=== PATIENT | female | born 1965 | race Caucasian/White ===

== ENCOUNTER 2018-08-23 13:41 | Observation (INO) ==
--- NOTE | 2018-08-23 14:13 | Emergency Department Note ---
Disposition Clinical Impression: Pleural effusion, left, Dyspnea on exertion Disposition: Admitted As Inpatient Condition: Undetermined Time of Disposition: 16:41 SOB HPI - General Chief Complaint: ED Chest Pain Stated Complaint: JUANCHO Time Seen by Provider: 08/23/18 13:46 Source: patient, family Mode of arrival: wheelchair Limitations: no limitations Nursing Notes Reviewed: Yes Vital Signs Reviewed: Yes - History of Present Illness 53-year-old female with history of 12 hypertension, CHF, COPD on 2 L nasal cannula Pita the emergency department with complaint of worsening shortness of breath. The patient was recently discharged from [facility] where she was diagnosed with a hemothorax secondary to for fracture ribs on the left. She had a left-sided pleural effusion that upon drainage at [facility] they noted it was a hemothorax. Patient had it drained and continue to [place] or shortness of breath but improved overall to she was brought into the emergency department today by her PCP with concern for worsening shortness of breath. Patient denies any associated chest pain. She denies any associated abdominal pain. The patient has a history of fatty liver and has history of cirrhosis secondary to this. She denies any other complaints at this time including hemoptysis, unilateral leg swelling. She does admit to bilateral lower extremity swelling which she states is not unusual for her. The patient has had no increase in oxygen demand but does state any time she relates more than just a few steps she would have short of breath and is per family weak to the point where she does not feel like she can be cared for at home. Patient denies any other complaints at this time. She is resting comfortably on 2 L nasal cannula at this time and speaking in full sentences at bedside. - Related Data Home Medications Medication Instructions Recorded Confirmed Amlodipine/Atorvastatin 40 mg PO DAILY 08/15/18 08/23/18 [Amlodipine-Atorvast 10-40 mg] Baclofen 20 mg PO TID 08/15/18 08/23/18 Cholecalciferol (D-3) [Vitamin D] 2,000 unit PO DAILY 08/15/18 08/23/18 Dicyclomine Hcl [Bentyl] 20 mg PO BIDWM 08/15/18 08/23/18 Escitalopram [Lexapro] 20 mg PO DAILY 08/15/18 08/23/18 Ferrous Sulfate [Iron] 325 mg PO 08/15/18 Gabapentin [Neurontin] 600 mg PO TID 08/15/18 08/23/18 Lidocaine TOPICAL Soln [Xylocaine] 08/15/18 Lisinopril [Zestril] 10 mg PO DAILY 08/15/18 08/23/18 Montelukast [Singulair] 10 mg PO DAILY 08/15/18 08/23/18 Omeprazole [PriLOSEC] 20 mg PO DAILY 08/15/18 08/23/18 Spironolactone [Aldactone] 25 mg PO DAILY 08/15/18 08/23/18 hydrOXYzine HCl [Hydroxyzine HCl] 25 mg PO 08/15/18 metFORMIN [Glucophage] 1,000 mg PO BIDWM 08/15/18 08/23/18 Allergies Allergy/AdvReac Type Severity Reaction Status Date / Time acetaminophen [From Vicodin] AdvReac Vomiting Verified 08/15/18 10:26 ampicillin AdvReac Rash Verified 08/15/18 10:26 duloxetine [From Cymbalta] AdvReac Swelling Verified 08/15/18 10:26 of the Eye furosemide [From Lasix] AdvReac See Verified 08/15/18 10:26 Comments hydrocodone [From Vicodin] AdvReac Vomiting Verified 08/15/18 10:26 Penicillins [PCN] AdvReac Rash Verified 08/15/18 10:26 pregabalin [From Lyrica] AdvReac See Verified 08/15/18 10:26 Comments All systems ED: reviewed and negative except as stated. Constitutional: Reports: weakness. Denies: fever, chills ENT ED: Denies: dysphagia Cardiovascular: Reports: dyspnea on exertion, orthopnea, edema. Denies: chest pain, syncope Respiratory: Reports: dyspnea. Denies: cough, sputum production Gastrointestinal: Denies: abdominal pain, nausea, vomiting, diarrhea, constipation Genitourinary: Denies: urgency, dysuria Musculoskeletal: Denies: back pain Integumentary: Denies: rash Neurological: Denies: headache, confusion Past Medical History - Past Medical History Attestation: Yes The following information was validated with the patient. Source: patient, old records reviewed Medical history: Reports: asthma, CHF, COPD, diabetes, hyperlipidemia, hypertension, liver disease, other Surgical history: Reports: other Psychiatric history: Reports: anxiety, depression - Social History Smoking Status: Former smoker Smokeless Tobacco Status: No Alcohol use: Reports: none Drug use: Reports: none Physical Exam - General Limitations: no limitations General appearance: alert, in distress (mild) - Head Head exam: atraumatic, normocephalic, normal inspection - Eye Eye exam: Present: normal appearance, PERRL, EOMI - ENT ENT exam: normal exam, normal oropharynx, mucous membranes moist - Neck Neck exam: Present: normal inspection, full ROM, trachea midline - Chest Chest inspection: Present: normal inspection, symmetric chest wall rise - Respiratory Respiratory exam: Present: other (coarse breath sounds, rales in LLL) - Cardiovascular Cardiovascular exam: Present: regular rate, normal rhythm, normal heart sounds - Abdominal Exam Abdominal exam: Present: soft, Non-Tender, distention (likely baseline). A bsent: tenderness, guarding, rebound, rigidity, Souza's sign, Rovsing's sign, tenderness at McBurney's Point - Extremities Exam Extremities exam: Present: full ROM, pedal edema (1-2+ pitting). Absent: tenderness - Neurological Exam Neurological exam: Present: alert, oriented X3 - Skin Skin exam: Present: warm, dry, intact, normal color Course Vital Signs Temperature 97.9 F 08/23/18 13:50 Pulse Rate 88 08/23/18 13:50 Respiratory Rate 18 08/23/18 13:50 Blood Pressure 124/58 08/23/18 13:50 O2 Sat by Pulse Oximetry 100 08/23/18 13:50 Temperature 97.9 F 08/23/18 13:50 Pulse Rate 88 08/23/18 13:50 Respiratory Rate 18 08/23/18 13:50 Blood Pressure 124/58 08/23/18 13:50 O2 Sat by Pulse Oximetry 100 08/23/18 14:18 Oxygen Delivery Oxygen Delivery Nasal Cannula Shortness of Breath/Dyspnea - [facility] Narrative Medical decision making narrative: Patient's workup in the emergency department demonstrates findings consistent with a left pleural effusion. This appears consistent with patient's history of hemothorax. Patient's no active extravasation with CTA of the patient's chest. Initial CT with noncontrast demonstrate what appears to be a motion artifact on repeat CT scan with IV contrast of the aortic base. No aneurysmal dilation noted. No other acute changes noted. The patient has been experiencing some exertional dyspnea to the point where I do not feel safe discharging the patient home at this time as she takes 3-4 steps and becomes dyspneic to the point where she cannot catch her breath. The patient does wear oxygen at home 2-3 L as required and is on baseline oxygen at this time. When sitting still the patient is having no respiratory distress. Addition the patient does have some bilate ral lower extremity pitting edema. We will admit the patient to the hospital at this time for further workup and care. Patient made aware and agrees to plan. No further questions or concerns noted at this time. Accepted by Dr. Le. - Lab Data Lab results reviewed: Yes I reviewed the patient's lab results. Result diagrams: 08/23/18 13:50 08/23/18 13:50 Lab Results 08/23/18 08/23/18 08/23/18 Range/Units 13:50 13:50 13:50 WBC 5.0 (4.3-11.1) K/mcL RBC 3.36 L (3.82-4.97) M/mcL Hgb 7.9 L (11.5-15.4) g/dL Hct 27.1 L (35.3-44.9) % MCV 80.7 L (83.0-100.0) fL MCH 23.5 L (28.0-33.3) pg MCHC 29.2 L (31.6-35.5) g/dL RDW 17.4 H (11.5-14.5) % Plt Count 96 L (140-400) K/mcL MPV 9.6 (9.4-12.4) fL Immature Gran % 0.6 (0-4) % Seg Neutrophils % 71.1 % Lymphocytes % 20.3 % Monocytes % 6.4 % Eosinophils % 1.4 % Basophils % 0.2 % Neutrophils # 3.6 (1.6-8.9) K/mcL Lymphocytes # 1.0 (0.6-4.6) K/mcL Monocytes # 0.3 (0.0-1.3) K/mcL Eosinophils # 0.1 (0.0-0.6) K/mcL Basophils # 0.0 (0.0-0.2) K/mcL Immature Plt Fraction 3.1 (1.1-6.1) % PT (9.4-12.1) Seconds INR Sodium 139 (136-145) mEq/L Potassium 4.1 (3.5-5.1) mEq/L Chloride 104 (98-107) mEq/L Carbon Dioxide 31 H (23-29) mEq/L BUN 11 (6-20) mg/dL Creatinine 0.67 (0.60-1.20) mg/dL Est GFR ( Amer) > 60 (> 60) Est GFR (Non-Af Amer) > 60 (> 60) BUN/Creatinine Ratio 16 (6-26) Glucose 117 H (70-105) mg/dL Calculated Osmolality 288 (280-300) Lactic Acid (0.5-2.2) mmol/L Calcium 9.1 (8.6-10.3) mg/dL Total Bilirubin 0.5 (0.3-1.0) mg/dL Direct Bilirubin 0.1 (0.0-0.2) mg/dL Indirect Bilirubin 0.4 (0.0-1.2) mg/dL AST 15 (13-39) Units/L ALT 15 (7-52) Units/L Alkaline Phosphatase 90 (34-104) Units/L Troponin I < 0.03 (< 0.04) ng/mL B-Natriuretic Peptide 74 (Less than 100) pg/mL Serum Total Protein 6.4 (6.4-8.9) g/dL Albumin 3.5 (3.5-5.7) g/dL Globulin 2.9 (2.4-3.5) g/dL Albumin/Globulin Ratio 1.2 (1.1-2.2) 08/23/18 08/23/18 Range/Units 13:50 14:17 WBC (4.3-11.1) K/mcL RBC (3.82-4.97) M/mcL Hgb (11.5-15.4) g/dL Hct (35.3-44.9) % MCV (83.0-100.0) fL MCH (28.0-33.3) pg MCHC (31.6-35.5) g/dL RDW (11.5-14.5) % Plt Count (140-400) K/mcL MPV (9.4-12.4) fL Immature Gran % (0-4) % Seg Neutrophils % % Lymphocytes % % Monocytes % % Eosinophils % % Basophils % % Neutrophils # (1.6-8.9) K/mcL Lymphocytes # (0.6-4.6) K/mcL Monocytes # (0.0-1.3) K/mcL Eosinophils # (0.0-0.6) K/mcL Basophils # (0.0-0.2) K/mcL Immature Plt Fraction (1.1-6.1) % PT 12.8 H (9.4-12.1) Seconds INR 1.1 Sodium (136-145) mEq/L Potassium (3.5-5.1) mEq/L Chloride (98-107) mEq/L Carbon Dioxide (23-29) mEq/L BUN (6-20) mg/dL Creatinine (0.60-1.20) mg/dL Est GFR ( Amer) (> 60) Est GFR (Non-Af Amer) (> 60) BUN/Creatinine Ratio (6-26) Glucose (70-105) mg/dL Calculated Osmolality (280-300) Lactic Acid 0.8 (0.5-2.2) mmol/L Calcium (8.6-10.3) mg/dL Total Bilirubin (0.3-1.0) mg/dL Direct Bilirubin (0.0-0.2) mg/dL Indirect Bilirubin (0.0-1.2) mg/dL AST (13-39) Units/L ALT (7-52) Units/L Alkaline Phosphatase (34-104) Units/L Troponin I (< 0.04) ng/mL B-Natriuretic Peptide (Less than 100) pg/mL Serum Total Protein (6.4-8.9) g/dL Albumin (3.5-5.7) g/dL Globulin (2.4-3.5) g/dL Albumin/Globulin Ratio (1.1-2.2) - Radiology Data Radiology results reviewed: Yes I reviewed the patient's radiology results. Chest CT 08/23/18 14:06 IMPRESSION: 1. Some inhomogeneity noted at the origin of the thoracic aorta however no evidence of aneurysmal dilatation. This may implicate the diagnosis of aortic dissection however, without IV contrast this diagnosis cannot be definitively made. 2. Cardiomegaly and mild pericardial thickening but no evidence of significant pericardial effusion. No evidence of mediastinal bleeding. 3. Mild left pleural effusion and lower lobe atelectatic changes. 4. Liver cirrhosis with nodularity and splenomegaly. No evidence of varices. D/ / 08/23/2018 15:35:49 Shonda Griggs MD / rah Interpreting Provider: Shonda Griggs MD Chest CTA 08/23/18 15:44 IMPRESSION: 1. Prior CT findings are related to motion artifact. No evidence of thoracic aortic dissection. 2. No pulmonary embolus. 3. Large left pleural effusion with adjacent compressive atelectasis. 4. Probable subacute fractures of left ribs 7 through 9. 5. Right base opacities which may represent infection or atelectasis. 6. Cirrhosis with stigmata of portal hypertension. D/ / 08/23/2018 16:21:17 Maria A Lawrence MD / santiago Interpreting Provider: Maria A Lawrence MD - EKG Data EKG attestation: Yes I reviewed and interpreted this EKG. EKG results narrative: Heart rate 82 beats for minute. Normal sinus rhythm. No ST elevation or ST depression noted. No acute changes noted. Attestation Statement - Attestation Attestation: I, Dawit Herrera, examined this patient and my medical decision-making was reviewed with the [employer] SPECIALIST/PA/Advanced Practice Nurse/Resident Physician. I agree with the documented findings, disposition and treatment plan as described except to the extent set forth below. 53-year-old female presents emergency Department with concerns of increasing shortness of breath. Patient has a history of recent rib fractures and hemoth orax which had to be drained well at [facility]. Patient states she has become increasingly more short of breath over the past week. She denies syncopal event. CT of the chest showed a left-sided pleural effusion but not one that needed immediate drainage. There was a question of a possible aortic aneurysm and we repeat a CT with IV contrast which did not show evidence of aortic dissection or aneurysm. Patient also has a history of COPD and is at risk for cardiac disease. She will be admitted for her increasing shortness of breath and weakness.
[2018-08-23 14:26] LABS: Immature Granulocytes % 0.6 % (0-4); Red Blood Count 3.36 M/mcL (3.82-4.97)
[2018-08-23 14:27] LABS: Basophils % 0.2 %; Eosinophils # 0.1 K/mcL (0.0-0.6); Eosinophils % 1.4 %; Hematocrit 27.1 % (35.3-44.9); Hemoglobin 7.9 g/dL (11.5-15.4); Immature Platelets 3.1 % (1.1-6.1); Lymphocytes % 20.3 %; Mean Corpuscular HGB Conc 29.2 g/dL (31.6-35.5); Mean Corpuscular Hemoglobin 23.5 pg (28.0-33.3); Mean Corpuscular Volume 80.7 fL (83.0-100.0); Mean Platelet Volume 9.6 fL (9.4-12.4); Monocytes # 0.3 K/mcL (0.0-1.3); Monocytes % 6.4 %; Red Cell Distribution Width 17.4 % (11.5-14.5); Segmented Neutrophils % 71.1 %
[2018-08-23 14:28] LABS: Neutrophils # 3.6 K/mcL (1.6-8.9); Platelet Count 96 K/mcL (140-400)
[2018-08-23 14:35] LABS: INR 1.1; Prothrombin Time 12.8 Seconds (9.4-12.1)
[2018-08-23 14:44] LABS: Alanine Aminotransferase 15 Units/L (7-52); Albumin 3.5 g/dL (3.5-5.7); Albumin/Globulin Ratio 1.2 (1.1-2.2); Alkaline Phosphatase 90 Units/L (34-104); Aspartate Amino Transferase 15 Units/L (13-39); BUN/Creatinine Ratio 16 (6-26); Bilirubin,Direct 0.1 mg/dL (0.0-0.2); Bilirubin,Indirect 0.4 mg/dL (0.0-1.2); Bilirubin,Total 0.5 mg/dL (0.3-1.0); Blood Urea Nitrogen 11 mg/dL (6-20); Calcium 9.1 mg/dL (8.6-10.3); Carbon Dioxide 31 mEq/L (23-29); Chloride 104 mEq/L (98-107); Globulin 2.9 g/dL (2.4-3.5); Glucose 117 mg/dL (70-105); Osmolality,Calculated 288 (280-300); Potassium 4.1 mEq/L (3.5-5.1); Sodium 139 mEq/L (136-145); Total Protein 6.4 g/dL (6.4-8.9); Troponin I < 0.03 ng/mL (< 0.04); eGFR For Non-African Americans > 60 (> 60)
[2018-08-23] MEDS ORDERED: Isovue-370 500 ML INFUS..BTL IV ONE (15:44)
--- NOTE | 2018-08-23 17:27 | Electrocardiograph Report ---
[place] [id number] Test Date: 2018-08-23 Pat Name: Rubi Jackson Department: EXAMC6 Room: Gender: F Cable Weaver: : 1965 Requested By: Dawit Herrera Order Number: [id number] Reading MD: Yong Fajardo Measurements Intervals [place] Rate: 82 P: 54 AR: 175 QRS: 57 QRSD: 92 T: 46 QT: 406 QTc: 475 Interpretive Statements Sinus rhythm Low voltage, precordial leads Borderline T abnormalities, anterior leads Electronically Signed On 08-23-2018 17:26:12 EST by Yong Fajardo
[2018-08-23] MEDS ORDERED: Naloxone 0.4 MG/ML INJ IVP PRN (17:36)
[2018-08-23] MEDS ORDERED: *HR* Dextrose 50 % in Water (Syg) 50 ML SYRINGE IVP PRN (17:41)
[2018-08-23] MEDS ORDERED: Dextrose Gel 15 GM/37.5 ML TUBE PO PRN ×2 (17:41)
[2018-08-23] MEDS ORDERED: D5% in Water 1,000 ML IVC PRN (17:41)
[2018-08-23] MEDS ORDERED: Ipratropium/Albuterol Neb 3 ML IH PRN (17:41)
--- NOTE | 2018-08-23 18:29 | Internal Med History&Physical ---
Date of Encounter: 08/23/18 Time of Encounter: 17:00 Internal Medicine - H&P: HPI Chief complaint: Shortness of breath Admitted From: Home Plans for Post Hospital Care: Home History of present illness: Ms. Jackson is a 53 year old female sent to ER by cardiology office for shortness of breath. Past medical history is significant for COPD, cirrhosis due to fatty liver, diabetes, hypertension. Patient said she has chronic dry cough for about 4 months, progressively getting worse, with exertional shortness of breath. Patient was admitted to [facility] recently, was found left pleural effusion. Patient had failed thoracentesis in [place] and was transferred to [facility], where patient had thoracentesis with 800 mL bloody fluid was drained. Patient was discharged after further 2 days observation which shows no further fluid accumulation. Patient denies fever, night sweats, or blood with loss. Actually She has gained 60 pounds since last March. Patient has left-sided pleural pain worsening on cough or deep breath. Patient's diuretics was on hold upon discharge from [facility] because of JOSEFINA and she was told to follow-up with her rn internal medicine. Today, patient went to see her rn internal medicine, she was recommended to come back to ER for further evaluation. In the emergency room, CTA has been done, shows no PE or aortic dissection, however, again large amount left-sided pleural effusion was found. Patient was admitted for further workup/treatment. Past Med Surg Social Fam HX - Past Medical History Medical history: asthma, CHF, COPD, diabetes, hyperlipidemia, hypertension, liver disease, other Additional medical history: sleep apnea Psychiatric history: anxiety, depression - Past Surgical History Surgical History: other - Social History Smoking Status: Former smoker Smokeless Tobacco Status: No Alcohol use: none Drug use: none - Family History Mother History Unknown: Yes Internal Medicine - H&P: Meds Amlodipine/Atorvastatin [Amlodipine-Atorvast 10-40 mg] 1 each PO 08/15/18 [History] Baclofen 20 mg PO 08/15/18 [History] Cholecalciferol (D-3) [Vitamin D] 2,000 unit PO DAILY 08/15/18 [History] Dicyclomine Hcl [Bentyl] 20 mg PO 08/15/18 [History] Escitalopram [Lexapro] 20 mg PO DAILY 08/15/18 [History] Ferrous Sulfate [Iron] 325 mg PO 08/15/18 [History] Gabapentin [Neurontin] 600 mg PO 08/15/18 [History] Lidocaine TOPICAL Soln [Xylocaine] 08/15/18 [History] Lisinopril [Zestril] 10 mg PO DAILY 08/15/18 [History] Montelukast [Singulair] 10 mg PO DAILY 08/15/18 [History] Omeprazole [PriLOSEC] 20 mg PO DAILY 08/15/18 [History] Spironolactone [Aldactone] 25 mg PO DAILY 08/15/18 [History] hydrOXYzine HCl [Hydroxyzine HCl] 25 mg PO 08/15/18 [History] metFORMIN [Glucophage] 1,000 mg PO BIDWM 08/15/18 [History] Allergy/AdvReac Type Severity Reaction Status Date / Time acetaminophen [From Vicodin] AdvReac Vomiting Verified 08/15/18 10:26 ampicillin AdvReac Rash Verified 08/15/18 10:26 duloxetine [From Cymbalta] AdvReac Swelling Verified 08/15/18 10:26 of the Eye furosemide [From Lasix] AdvReac See Verified 08/15/18 10:26 Comments hydrocodone [From Vicodin] AdvReac Vomiting Verified 08/15/18 10:26 Penicillins [PCN] AdvReac Rash Verified 08/15/18 10:26 pregabalin [From Lyrica] AdvReac See Verified 08/15/18 10:26 Comments All Systems PM: A 10-system review of systems was performed and is negative for pertinent findings except as documented above in the HPI. - Constitutional Vitals: Temp Pulse Resp BP Pulse Ox 97.9 F 88 18 124/58 100 08/23/18 13:50 08/23/18 13:50 08/23/18 13:50 08/23/18 13:50 08/23/18 14:18 Exam: Pt is AAO x 3, in NAD, morbid obesity HEENT: NC/AT, PERRL Neck: Supple, no JVD, no LAD Lungs: Breath sounds low on left side, trace wheezes bilaterally. Heart: S1S2, RRR Abd: Soft, mild tenderness in 4Q without rebound or guarding, BS present Ext: ROM wnl, no pedal edema Neuro: No focal deficit Internal Med - H&P Results - Labs CBC & Chem 7: 08/23/18 13:50 08/23/18 13:50 Labs: Short CBC 08/23/18 Range/Units 13:50 WBC 5.0 (4.3-11.1) K/mcL Hgb 7.9 L (11.5-15.4) g/dL Hct 27.1 L (35.3-44.9) % Plt Count 96 L (140-400) K/mcL Neutrophils # 3.6 (1.6-8.9) K/mcL BMP 08/23/18 13:50 Sodium 139 Potassium 4.1 Chloride 104 Carbon Dioxide 31 H BUN 11 Creatinine 0.67 Glucose 117 H Calcium 9.1 Cardiac Enzymes 08/23/18 Range/Units 13:50 Troponin I < 0.03 (< 0.04) ng/mL Liver Function 08/23/18 Range/Units 13:50 Total Bilirubin 0.5 (0.3-1.0) mg/dL Direct Bilirubin 0.1 (0.0-0.2) mg/dL AST 15 (13-39) Units/L ALT 15 (7-52) Units/L Alkaline Phosphatase 90 (34-104) Units/L Albumin 3.5 (3.5-5.7) g/dL - Impressions ITS Impressions Chest CT 08/23/18 14:06 IMPRESSION: 1. Some inhomogeneity noted at the origin of the thoracic aorta however no evidence of aneurysmal dilatation. This may implicate the diagnosis of aortic dissection however, without IV contrast this diagnosis cannot be definitively made. 2. Cardiomegaly and mild pericardial thickening but no evidence of significant pericardial effusion. No evidence of mediastinal bleeding. 3. Mild left pleural effusion and lower lobe atelectatic changes. 4. Liver cirrhosis with nodularity and splenomegaly. No evidence of varices. D/ / 08/23/2018 15:35:49 Shonda Griggs MD / rah Interpreting Provider: Shonda Griggs MD Chest CTA 08/23/18 15:44 IMPRESSION: 1. Prior CT findings are related to motion artifact. No evidence of thoracic aortic dissection. 2. No pulmonary embolus. 3. Large left pleural effusion with adjacent compressive atelectasis. 4. Probable subacute fractures of left ribs 7 through 9. 5. Right base opacities which may represent infection or atelectasis. 6. Cirrhosis with stigmata of portal hypertension. D/ / 08/23/2018 16:21:17 Maria A Lawrence MD / [email or web address] Interpreting Provider: Maria A Lawrence MD - Assessment and plan (1) Cirrhosis Current Visit: Yes Status: Acute Assessment and plan: Due to fatty liver. Hx of cirrhosis for many years, will order abd US to evaluate cirrhosis/acites or other organ abnormality as she has mild abd pain. Qualifiers: Hepatic cirrhosis type: other cirrhosis Qualified Code(s): K74.69 - Other cirrhosis of liver (2) COPD (chronic obstructive pulmonary disease) Current Visit: Yes Status: Acute Assessment and plan: Has trace wheezing, place pt on duoneb scheduled and PRN, cont home med singular. Cont NC O2. Qualifiers: COPD type: emphysema Emphysema type: unspecified Qualified Code(s): J43.9 - Emphysema, unspecified (3) Morbid obesity Current Visit: Yes Status: Acute Assessment and plan: Need lifestyle modification as outpatient. (4) Anemia Current Visit: Yes Status: Acute Assessment and plan: MCV 80.7, low side ferritin and normal vit B12 and folate on recent lab work. Saw hematology and did SPEP. Will consult hemotology in AM. Qualifiers: Anemia type: iron deficiency Iron deficiency anemia type: chronic blood loss Qualified Code(s): D50.0 - Iron deficiency anemia secondary to blood loss (chronic) (5) Diabetes mellitus Current Visit: Yes Status: Acute Assessment and plan: Place pt on SSI Qualifiers: Diabetes mellitus type: type 2 Diabetes mellitus nursing home insulin use: [facility] terminal computer operator use Diabetes mellitus complication status: without compli cation Qualified Code(s): E11.9 - Type 2 diabetes mellitus without compli cations (6) Hypertension Current Visit: Yes Status: Acute Assessment and plan: Cont home amlodipine, hold lisinopril considering pt had contrast CT today. Closely monitor BP. Qualifiers: Hypertension type: essential hypertension Qualified Code(s): I10 - Essential (primary) hypertension (7) Rib fracture Current Visit: Yes Status: Acute Assessment and plan: Found since she is in [place], shown on CTA again. Pt denies trauma, etiology undetermined. - Cont symptomatic management. Qualifiers: Rib fracture type: multiple ribs Fracture type: closed Laterality: left Fracture healing: with delayed healing Qualified Code(s): S22.42XG - Multiple fractures of ribs, left side, subsequent encounter for fracture with delayed healing (8) DVT prophylaxis Current Visit: Yes Status: Acute Assessment and plan: EPCDs, hold AC for possible procedure. (9) Dyspnea on exertion Current Visit: Yes Status: Acute Assessment and plan: Multiple factoral include large pleural effusion, morbid obesity, COPD. BNP wnl, however pt is morbid obesity, will order echo to [facility] r/o CHF (10) Pleural effusion, left Current Visit: Yes Status: Acute Assessment and plan: Re-accumulate quickly (last thoracentesis in [place] on 08/12/18), etiology undetermined. - [facility] Came documentation obtained by hematology office and scanned in chart. - Seems exdudate from inflammatory etiology, cytology shows negative for malignancy. - will consult pulmonology for further workup/treatment. - Keep pt NPO from midnight in case procedure needed. - Cont supportive treatment at this point. - Time Spent With Patient Total time spent is greater than 50% in coordination of care (as documented) at patient's floor/unit and/or counseling patient: 40 min Greater than 35 minutes
[2018-08-23] MEDS: Insulin LISPRO 300 UNITS/3 ML VIAL SQ SCH (20:44)
[2018-08-23] MEDS: Ipratropium/Albuterol Neb 3 ML IH SCH (23:37)
[2018-08-24] MEDS: Gabapentin 300 MG CAPSULE PO SCH ×4 (00:15→20:36)
[2018-08-24] MEDS: Ipratropium/Albuterol Neb 3 ML IH SCH ×4 (03:40→21:15)
[2018-08-24 07:26] LABS: Hemoglobin 7.7 g/dL (11.5-15.4); Mean Corpuscular Volume 80.1 fL (83.0-100.0); Monocytes # 0.3 K/mcL (0.0-1.3); Monocytes % 7.3 %; Red Cell Distribution Width 17.6 % (11.5-14.5)
[2018-08-24 07:39] LABS: BUN/Creatinine Ratio 16 (6-26); Blood Urea Nitrogen 12 mg/dL (6-20); Carbon Dioxide 31 mEq/L (23-29); Chloride 105 mEq/L (98-107); Glucose 154 mg/dL (70-105); Magnesium 1.8 mg/dL (1.6-2.6); Osmolality,Calculated 293 (280-300); Potassium 4.3 mEq/L (3.5-5.1); Sodium 140 mEq/L (136-145); eGFR For Non-African Americans > 60 (> 60)
[2018-08-24 07:40] LABS: % Iron Saturation 7 % (15-50); Iron 30 mcg/dL (50-170); Transferrin 287 mg/dL (203-362)
[2018-08-24 07:50] LABS: Basophils % 0.4 %; Eosinophils # 0.1 K/mcL (0.0-0.6); Eosinophils % 1.8 %; Hematocrit 26.2 % (35.3-44.9); Immature Granulocytes % 0.7 % (0-4); Immature Platelets 3.2 % (1.1-6.1); Lymphocytes # 0.9 K/mcL (0.6-4.6); Lymphocytes % 20.8 %; Mean Corpuscular HGB Conc 29.4 g/dL (31.6-35.5); Mean Corpuscular Hemoglobin 23.5 pg (28.0-33.3); Mean Platelet Volume 10.2 fL (9.4-12.4); Neutrophils # 3.1 K/mcL (1.6-8.9); Red Blood Count 3.27 M/mcL (3.82-4.97)
[2018-08-24] MEDS ORDERED: Perflutren Lipid Microsphere 1.3 ML in 0.9 % Sodium Chloride 8.7 ML IVP ONE (07:55)
[2018-08-24] MEDS ORDERED: Perflutren Lipid Microsphere 2 ML VIAL ONE (07:59)
[2018-08-24 08:05] LABS: Platelet Count 98 K/mcL (140-400)
[2018-08-24] MEDS: Insulin LISPRO 300 UNITS/3 ML VIAL SQ SCH ×4 (09:17→20:37)
[2018-08-24] MEDS: amLODIPine 5 MG TABLET PO SCH (10:18)
--- NOTE | 2018-08-24 11:14 | Internal Med Progress Note ---
Hospitalist Progress Note - Encounter Date of Encounter: 08/24/18 Time of Encounter: 10:00 - Subjective Interval History: Patient feels mild shortness of breath as before. Vitals are stable. No new complaints. Had echo and abdominal ultrasound. - Exam Vitals: Temp Pulse Resp BP Pulse Ox 97.8 F 85 17 109/70 97 08/24/18 05:34 08/24/18 05:34 08/24/18 05:34 08/24/18 05:34 08/24/18 05:34 Exam: Pt is AAO x 3, in NAD, morbid obesity HEENT: NC/AT, PERRL Neck: Supple, no JVD, no LAD Lungs: Breath sounds low on left side, no wheezes. Heart: S1S2, RRR Abd: Soft, mild tenderness in 4Q without rebound or guarding, BS present Ext: ROM wnl, no pedal edema Neuro: No focal deficit - Assessment and Plan (1) Cirrhosis Current Visit: Yes Status: Acute Assessment and Plan: Due to fatty liver. Hx of cirrhosis for many years, will order abd US to evaluate cirrhosis/acites or other organ abnormality as she has mild abd pain. (2) COPD (chronic obstructive pulmonary disease) Current Visit: Yes Status: Acute Assessment and Plan: No wheezing today, cont duoneb scheduled and PRN, cont home med singular. Cont NC O2. (3) Morbid obesity Current Visit: Yes Status: Acute Assessment and Plan: Need lifestyle modification as outpatient. (4) Anemia Current Visit: Yes Status: Acute Assessment and Plan: MCV 80.7, low side ferritin and normal vit B12 and folate on recent lab work. - Low iron level, cont home iron pills. - Outpatient results shows mild elevated Free kappa and lambba LC, discussed with gas main and line fitter Dr Galvez, non-specific, recommend cont outpatient follow up. (5) Diabetes mellitus Current Visit: Yes Status: Acute Assessment and Plan: Place pt on SSI (6) Hypertension Current Visit: Yes Status: Acute Assessment and Plan: Cont home amlodipine, hold lisinopril considering pt had contrast CT today. Closely monitor BP. Hydralazine iv prn. (7) Rib fracture Current Visit: Yes Status: Acute Assessment and Plan: Found since she is in [place], shown on CTA again. Pt report fall in last February but not sure if it is the reason of fracture as she doesn't feels hurt of left chest after fall, etiology undetermined. - Cont symptomatic management. (8) DVT prophylaxis Current Visit: Yes Status: Acute Assessment and Plan: EPCDs, hold AC for possible procedure. (9) Dyspnea on exertion Current Visit: Yes Status: Acute Assessment and Plan: Multiple factoral include large pleural effusion, morbid obesity, COPD. BNP wnl, however pt is morbid obesity, will order echo to furether r/o CHF (10) Pleural effusion, left Current Visit: Yes Status: Acute Assessment and Plan: Re-accumulate quickly (last thoracentesis in [place] on 08/12/18), etiology undetermined. - [facility] documentation obtained by hematology office and scanned in chart. - Seems exdudate from inflammatory etiology, cytology shows negative for malignancy. Precalcitonin test negative in [facility]. - will consult pulmonology for further workup/treatment. - Cont supportive treatment at this point. - Time Spent with Patient Total time spent is greater than 50% in coordination of care (as documented) at patient's floor/unit and/or counseling patient: 30 min 25 - 35 minutes Plan of Care Discussed with: patient Internal Medicine: Result - Labs CBC & Chem 7: 08/24/18 06:56 08/24/18 06:56 Labs: Short CBC 08/23/18 08/24/18 Range/Units 13:50 06:56 WBC 5.0 4.5 (4.3-11.1) K/mcL Hgb 7.9 L 7.7 L (11.5-15.4) g/dL Hct 27.1 L 26.2 L (35.3-44.9) % Plt Count 96 L 98 L (140-400) K/mcL Neutrophils # 3.6 3.1 (1.6-8.9) K/mcL BMP 08/23/18 08/24/18 13:50 06:56 Sodium 139 140 Potassium 4.1 4.3 Chloride 104 105 Carbon Dioxide 31 H 31 H BUN 11 12 Creatinine 0.67 0.75 Glucose 117 H 154 H Calcium 9.1 9.0 Cardiac Enzymes 08/23/18 Range/Units 13:50 Troponin I < 0.03 (< 0.04) ng/mL Liver Function 08/23/18 Range/Units 13:50 Total Bilirubin 0.5 (0.3-1.0) mg/dL Direct Bilirubin 0.1 (0.0-0.2) mg/dL AST 15 (13-39) Units/L ALT 15 (7-52) Units/L Alkaline Phosphatase 90 (34-104) Units/L Albumin 3.5 (3.5-5.7) g/dL - ABG Interpretation ABG results: PT/INR, D-dimer PT 12.8 Seconds (9.4-12.1) H 08/23/18 13:50 - Impressions Impressions Chest CT 08/23/18 14:06 IMPRESSION: 1. Some inhomogeneity noted at the origin of the thoracic aorta however no evidence of aneurysmal dilatation. This may implicate the diagnosis of aortic dissection however, without IV contrast this diagnosis cannot be definitively made. 2. Cardiomegaly and mild pericardial thickening but no evidence of significant pericardial effusion. No evidence of mediastinal bleeding. 3. Mild left pleural effusion and lower lobe atelectatic changes. 4. Liver cirrhosis with nodularity and splenomegaly. No evidence of varices. D/ / 08/23/2018 15:35:49 Shonda Griggs MD / rah Interpreting Provider: Shonda Griggs MD Chest CTA 08/23/18 15:44 IMPRESSION: 1. Prior CT findings are related to motion artifact. No evidence of thoracic aortic dissection. 2. No pulmonary embolus. 3. Large left pleural effusion with adjacent compressive atelectasis. 4. Probable subacute fractures of left ribs 7 through 9. 5. Right base opacities which may represent infection or atelectasis. 6. Cirrhosis with stigmata of portal hypertension. D/ / 08/23/2018 16:21:17 Maria A Lawrence MD / santiago Interpreting Provider: Maria A Lawrence MD Abdomen Ultrasound 08/24/18 17:39 IMPRESSION: 1. Cirrhotic morphology of the liver with stigmata of portal hypertension. 2. Status post cholecystectomy. D/ / 08/24/2018 10:03:47 Jennifer Rao MD / bcarter Interpreting Provider: Jennifer Rao MD Consult Discharge Plan - Plan Referrals: Jane Daugherty CNP [Primary Care Provider] - (1) Cirrhosis Qualifiers: Hepatic cirrhosis type: other cirrhosis Qualified Code(s): K74.69 - Other cirrhosis of liver (2) COPD (chronic obstructive pulmonary disease) Qualifiers: COPD type: emphysema Emphysema type: unspecified Qualified Code(s): J43.9 - Emphysema, unspecified (4) Anemia Qualifiers: Anemia type: iron deficiency Iron deficiency anemia type: chronic blood loss Qualified Code(s): D50.0 - Iron deficiency anemia secondary to blood loss (chronic) (5) Diabetes mellitus Qualifiers: Diabetes mellitus type: type 2 Diabetes mellitus long distance operator insulin use: without jail use Diabetes mellitus complication status: without complication Qualified Code(s): E11.9 - Type 2 diabetes mellitus without complications (6) Hypertension Qualifiers: Hypertension type: essential hypertension Qualified Code(s): I10 - Essential (primary) hypertension (7) Rib fracture Qualifiers: Rib fracture type: multiple ribs Fracture type: closed Laterality: left Fracture healing: with delayed healing Qualified Code(s): S22.42XG - Multiple fractures of ribs, left side, subsequent encounter for fracture with delayed healing
--- NOTE | 2018-08-24 11:47 | Pulmonology Consult Note ---
Date of Encounter: 08/24/18 Time of Encounter: 11:00 Assessment and Plan (1) COPD (chronic obstructive pulmonary disease) Current Visit: Yes Status: Acute Qualifiers: COPD type: emphysema Emphysema type: unspecified Qualified Code(s): J43.9 - Emphysema, unspecified (2) Cirrhosis Current Visit: Yes Status: Acute Qualifiers: Hepatic cirrhosis type: other cirrhosis Qualified Code(s): K74.69 - Other cirrhosis of liver (3) Acute respiratory failure with hypoxia Current Visit: Yes Status: Acute Patient has baseline COPD, most likely diastolic heart failure, has left sided pleural effusion most likely due to cirrhosis with portal hypertension. (4) Pleural effusion, left Current Visit: Yes Status: Acute After chart review patient has left-sided pleural effusion had bloody pleural fluid after the last thoracentesis.Possible bleeding into transudative pleural effusion due to cirrhosis with associated rib fractures. Since she smoker malignant pleural effusion as a possibility but this low probability does not look like empyema or loculated parapneumonic effusion since patient is morbidly obese and the calf thoracentesis in the past who referred to interventional radiology for ultrasound/CT guided thoracentesis. Please send pleural fluid for routine culture, cytology and pleural fluid chemistry differentiate between transudate versus exudate. (5) Morbid obesity Current Visit: Yes Status: Acute Counseled about the importance of weight loss patient does not look motivated. (6) COPD (chronic obstructive pulmonary disease) Current Visit: Yes Status: Acute Continue bronchodilators as patient symptoms are at baseline on discharge to continue home bronchodilator regimen. Qualifiers: Emphysema type: unspecified Qualified Code(s): J43.9 - Emphysema, unspecified (7) JIM on CPAP Current Visit: Yes Status: Acute Continue home CPAP settings. History of Present Illness Consult date: 08/24/18 Requesting physician: Drake Pardo Chief complaint: chest pain of inspiration History of present illness: 53-year-old female with past medical history of morbid obesity, COPD, diastolic heart failure, JIM on CPAP was recently evaluated for left-sided pleural effusion also patient has history of cirrhosis with portal hypertension. Patient developed hemothorax not sure the etiology with fracture of the ribs are difficult thoracentesis that [facility] was sent to [facility] where she got thoracentesis but 1800 mL of bloody fluid was removed and reviewed the cytology which was negative. Patient comes with cough and some chest pain with shortness of breath ROSCOE did not show any pulmonary embolism but showed moderate size pleural effusion on the left side pulmonary was consulted for wendy luation of this pleural effusion. Patient denies much sputum production, denies any fever or chills denies any other constitutional symptoms. Past Med Surg Social Fam HX - Past Medical History Medical history: asthma, CHF, COPD, diabetes, hyperlipidemia, hypertension, liver disease, other Additional medical history: sleep apnea Psychiatric history: anxiety, depression - Past Surgical History Surgical History: other - Social History Smoking Status: Former smoker Smokeless Tobacco Status: No Alcohol use: none Drug use: none - Family History Mother History Unknown: Yes Medications and Allergies Baclofen 20 mg PO TID 08/15/18 [History] Cholecalciferol (D-3) [Vitamin D] 2,000 unit PO DAILY 08/15/18 [History] Dicyclomine Hcl [Bentyl] 20 mg PO QID PRN 08/15/18 [History] Escitalopram [Lexapro] 30 mg PO DAILY 08/15/18 [History] Gabapentin [Neurontin] 600 mg PO TID 08/15/18 [History] Lisinopril [Zestril] 10 mg PO DAILY 08/15/18 [History] Montelukast [Singulair] 10 mg PO DAILY 08/15/18 [History] Omeprazole [PriLOSEC] 20 mg PO BID 08/15/18 [History] Spironolactone [Aldactone] 25 mg PO DAILY 08/15/18 [History] metFORMIN [Glucophage] 1,000 mg PO BIDWM 08/15/18 [History] Albuterol Sulfate [Ventolin Hfa] 2 puff IH Q6H PRN 08/24/18 [History] Atorvastatin [Lipitor] 40 mg PO HS 08/24/18 [History] Budesonide/Formoterol 160/4.5 [Symbicort 160/4.5] 2 puff IH BIDR 08/24/18 [History] Bumetanide [Bumex] 1 mg PO DAILY 08/24/18 [History] Ipratropium/Albuterol Neb [Duoneb] 3 ml IH Q4HR PRN 08/24/18 [History] Naproxen Sodium [Aleve] 440 mg PO BID 08/24/18 [History] hydrOXYzine HCl [Hydroxyzine HCl] 50 mg PO TID PRN 08/24/18 [History] Allergy/AdvReac Type Severity Reaction Status Date / Time acetaminophen [From Vicodin] AdvReac Vomiting Verified 08/15/18 10:26 ampicillin AdvReac Rash Verified 08/15/18 10:26 duloxetine [From Cymbalta] AdvReac Swelling Verified 08/15/18 10:26 of the Eye furosemide [From Lasix] AdvReac See Verified 08/15/18 10:26 Comments hydrocodone [From Vicodin] AdvReac Vomiting Verified 08/15/18 10:26 Penicillins [PCN] AdvReac Rash Verified 08/15/18 10:26 pregabalin [From Lyrica] AdvReac See Verified 08/15/18 10:26 Comments All Systems: The remainder of the systems were reviewed and are negative Physical Examination Vital Signs: Vital Signs, Last 4 Hours Temp Pulse Resp BP Pulse Ox 08/24/18 11:13 98.1 F 91 22 166/79 98 Auscultation: left: diminished breath sounds Results - Laboratory Findings CBC and BMP: 08/24/18 06:56 08/24/18 06:56 PT/INR, D-dimer PT 12.8 Seconds (9.4-12.1) H 08/23/18 13:50 Abnormal lab findings: Abnormal lab results RBC 3.27 M/mcL (3.82-4.97) L 08/24/18 06:56 Hgb 7.7 g/dL (11.5-15.4) L 08/24/18 06:56 Hct 26.2 % (35.3-44.9) L 08/24/18 06:56 MCV 80.1 fL (83.0-100.0) L 08/24/18 06:56 MCH 23.5 pg (28.0-33.3) L 08/24/18 06:56 MCHC 29.4 g/dL (31.6-35.5) L 08/24/18 06:56 RDW 17.6 % (11.5-14.5) H 08/24/18 06:56 Plt Count 98 K/mcL (140-400) L 08/24/18 06:56 PT 12.8 Seconds (9.4-12.1) H 08/23/18 13:50 Carbon Dioxide 31 mEq/L (23-29) H 08/24/18 06:56 Glucose 154 mg/dL (70-105) H 08/24/18 06:56 POC Glucose 147 mg/dL (70-99) H 08/24/18 10:00 Iron 30 mcg/dL (50-170) L 08/24/18 06:56 % Saturation 7 % (15-50) L 08/24/18 06:56 - Clinical Findings Intake & Output: Intake & Output 08/23/18 08/24/18 08/24/18 23:59 07:59 15:59 Intake Total 240 / 240 0 / 0 120 / 120 Output Total 850 / 850 Balance 240 / 240 0 / 0 -730 / -730 Weight 132.455 kg Consult Discharge Plan - Plan Referrals: Jane Daugherty, HOTSH[employer] SUPERINTENDENT [Primary Care Provider] -
[2018-08-24] MEDS ORDERED: hydrOXYzine pamoate 25 MG CAPSULE PO PRN (19:03)
[2018-08-24] MEDS: Baclofen 10 MG TABLET PO SCH (20:36)
[2018-08-24] MEDS: Budesonide/Formoterol 160/4.5 1 PUFF INH IH SCH (21:22)
[2018-08-25] MEDS ORDERED: Acetaminophen 325 MG TABLET PO PRN (00:22)
[2018-08-25] MEDS ORDERED: traMADol 50 MG TABLET PO PRN ×2 (00:23→00:24)
[2018-08-25] MEDS: Ipratropium/Albuterol Neb 3 ML IH SCH ×3 (03:44→10:03)
[2018-08-25] MEDS ORDERED: *HR* Promethazine 25 MG/ML VIAL IVP PRN (04:40)
[2018-08-25] MEDS ORDERED: Ondansetron 4 MG/2 ML VIAL IVP PRN (06:45)
[2018-08-25] MEDS: amLODIPine 5 MG TABLET PO SCH (08:30)
[2018-08-25] MEDS: Gabapentin 300 MG CAPSULE PO SCH (08:31)
[2018-08-25] MEDS: Baclofen 10 MG TABLET PO SCH (08:31)
[2018-08-25] MEDS: Insulin LISPRO 300 UNITS/3 ML VIAL SQ SCH ×2 (08:32→12:00)
[2018-08-25] MEDS ORDERED: Spironolactone 25 MG TABLET PO SCH (09:00)
[2018-08-25] MEDS ORDERED: Cholecalciferol (D-3) 1,000 UNIT TABLET PO SCH (09:00)
[2018-08-25] MEDS ORDERED: Bumetanide 1 MG TABLET PO SCH (09:00)
[2018-08-25 09:06] LABS: Eosinophils % 0.9 %; Hematocrit 27.5 % (35.3-44.9); Immature Granulocytes % 0.4 % (0-4); Mean Corpuscular Volume 81.4 fL (83.0-100.0); Red Blood Count 3.38 M/mcL (3.82-4.97)
[2018-08-25 09:08] LABS: Basophils % 0.2 %; Eosinophils # 0.1 K/mcL (0.0-0.6); Hemoglobin 8.2 g/dL (11.5-15.4); Immature Platelets 2.3 % (1.1-6.1); Lymphocytes # 0.4 K/mcL (0.6-4.6); Lymphocytes % 7.7 %; Mean Corpuscular HGB Conc 29.8 g/dL (31.6-35.5); Mean Corpuscular Hemoglobin 24.3 pg (28.0-33.3); Mean Platelet Volume 9.5 fL (9.4-12.4); Monocytes # 0.2 K/mcL (0.0-1.3); Monocytes % 4.5 %; Neutrophils # 4.6 K/mcL (1.6-8.9); Red Cell Distribution Width 17.7 % (11.5-14.5); Segmented Neutrophils % 86.3 %
[2018-08-25 09:15] LABS: Platelet Count 87 K/mcL (140-400)
[2018-08-25 09:25] LABS: BUN/Creatinine Ratio 17 (6-26); Blood Urea Nitrogen 12 mg/dL (6-20); Calcium 8.8 mg/dL (8.6-10.3); Carbon Dioxide 29 mEq/L (23-29); Chloride 104 mEq/L (98-107); Glucose 179 mg/dL (70-105); Osmolality,Calculated 292 (280-300); Potassium 4.5 mEq/L (3.5-5.1); Sodium 139 mEq/L (136-145); eGFR For Non-African Americans > 60 (> 60)
[2018-08-25] MEDS: Budesonide/Formoterol 160/4.5 1 PUFF INH IH SCH ×2 (10:01→10:03)
--- NOTE | 2018-08-25 11:14 | Discharge Summary ---
- NOTES TO OUTPATIENT PROVIDER Notes to Outpatient Provider: 1. Pt has CT with contrast on 08/23/18, please cont hold her metformin. Orders not resulted at time of discharge: Pending orders 08/25/18 10:40 GI Panel,Stool [MOLMIC] Routine Date of Encounter: 08/25/18 Time of Encounter: 10:00 - Discharge Diagnosis (1) Cirrhosis Priority: Secondary Status: Acute Qualifiers: Hepatic cirrhosis type: other cirrhosis Qualified Code(s): K74.69 - Other cirrhosis of liver (2) COPD (chronic obstructive pulmonary disease) Priority: Secondary Status: Acute Qualifiers: COPD type: emphysema Emphysema type: unspecified Qualified Code(s): J43.9 - Emphysema, unspecified (3) Morbid obesity Priority: Secondary Status: Acute (4) Anemia Priority: Secondary Status: Acute Qualifiers: Anemia type: iron deficiency Iron deficiency anemia type: chronic blood loss Qualified Code(s): D50.0 - Iron deficiency anemia secondary to blood loss (chronic) (5) Diabetes mellitus Priority: Secondary Status: Acute Qualifiers: Diabetes mellitus type: type 2 Diabetes mellitus prison insulin use: without prison use Diabetes mellitus complication status: without complication Qualified Code(s): E11.9 - Type 2 diabetes mellitus without complications (6) Hypertension Priority: Secondary Status: Acute Qualifiers: Hypertension type: essential hypertension Qualified Code(s): I10 - Essential (primary) hypertension (7) Rib fracture Priority: Secondary Status: Acute Qualifiers: Rib fracture type: multiple ribs Fracture type: closed Laterality: left Fracture healing: with delayed healing Qualified Code(s): S22.42XG - Multiple fractures of ribs, left side, subsequent encounter for fracture with delayed healing (8) DVT prophylaxis Priority: Secondary Status: Acute (9) Dyspnea on exertion Priority: Primary Status: Acute (10) Pleural effusion, left Priority: Primary Status: Acute Hospital course: Ms. Jackson is a 53 year old female present to ER for exertional shortness of breath. Patient was found left-sided pleural effusion. Patient had a similar pleural effusion about 2 weeks ago and had thoracentesis in [facility]. Patient was admitted and supportive treatment with oxygen started. Pulmonology consult was called and saw patient. Recommend thoracentesis for diagnostic and therapeutic purposes. However, patient is morbid obese and has failed thoracentesis previously in [facility]. Patient worry about difficult procedure and request to be transferred to [facility]. [place] transfer center was called, patient was accepted by [facility]. I have seen and examined this patient today. Patient feels fine, complained diarrhea, which is watery. Vitals are stable, no fever or abdominal pain. GI panel was ordered, if patient has diarrhea again will send a sample to lab. Will fax result to [place] if sample sent to lab. Otherwise patient is stable to be transferred to [facility] for further management. Discharge discussed with: patient - Time Spent with Patient Total time spent providing and/or coordinating discharge services: 25 min Less than 30 minutes - Discharge Medications Home Medications: Baclofen 20 mg PO TID 08/15/18 [History] Cholecalciferol (D-3) [Vitamin D] 2,000 unit PO DAILY 08/15/18 [History] Dicyclomine Hcl [Bentyl] 20 mg PO QID PRN 08/15/18 [History] Escitalopram [Lexapro] 30 mg PO DAILY 08/15/18 [History] Gabapentin [Neurontin] 600 mg PO TID 08/15/18 [History] Lisinopril [Zestril] 10 mg PO DAILY 08/15/18 [History] Montelukast [Singulair] 10 mg PO DAILY 08/15/18 [History] Omeprazole [PriLOSEC] 20 mg PO BID 08/15/18 [History] Spironolactone [Aldactone] 25 mg PO DAILY 08/15/18 [History] metFORMIN [Glucophage] 1,000 mg PO BIDWM 08/15/18 [History] Albuterol Sulfate [Ventolin Hfa] 2 puff IH Q6H PRN 08/24/18 [History] Atorvastatin [Lipitor] 40 mg PO HS 08/24/18 [History] Budesonide/Formoterol 160/4.5 [Symbicort 160/4.5] 2 puff IH BIDR 08/24/18 [History] Bumetanide [Bumex] 1 mg PO DAILY 08/24/18 [History] Ipratropium/Albuterol Neb [Duoneb] 3 ml IH Q4HR PRN 08/24/18 [History] Naproxen Sodium [Aleve] 440 mg PO BID 08/24/18 [History] hydrOXYzine HCl [Hydroxyzine HCl] 50 mg PO TID PRN 08/24/18 [History] Ferrous Sulfate 325 mg PO DAILY tablet 08/25/18 [Rx] Insulin LISPRO [HumaLOG] 0 units SQ HS vial 08/25/18 [Rx] Insulin LISPRO [HumaLOG] 0 units SQ TIDAC vial 08/25/18 [Rx] amLODIPine [Norvasc] 10 mg PO DAILY tablet 08/25/18 [Rx] Allergies/Adverse Reactions: Allergy/AdvReac Type Severity Reaction Status Date / Time acetaminophen [From Vicodin] AdvReac Vomiting Verified 08/15/18 10:26 ampicillin AdvReac Rash Verified 08/15/18 10:26 duloxetine [From Cymbalta] AdvReac Swelling Verified 08/15/18 10:26 of the Eye furosemide [From Lasix] AdvReac See Verified 08/15/18 10:26 Comments hydrocodone [From Vicodin] AdvReac Vomiting Verified 08/15/18 10:26 Penicillins [PCN] AdvReac Rash Verified 08/15/18 10:26 pregabalin [From Lyrica] AdvReac See Verified 08/15/18 10:26 Comments Date of admission: 08/23/18 18:19 Primary care physician: AARON Rosales Consults: 08/23/18 19:02 Consult to Pulmonology [CONS] Routine Consulting Provider: [facility] Reason for Consult: Recurrent pleural effusion on left side Call Completed: No 08/24/18 14:39 Consult to Interventional Radiology [CONS] Routine Consulting Provider: Radiology Interventional Cols Reason for Consult: Left sided pleural effusion diagnostic /therapeutic Thoracentesis Time Notified: 14:00 Call Completed: No Discharging clinician: Drake Pardo Anticipated date of discharge: 08/25/18 - Constitutional Vitals: Temp Pulse Resp BP Pulse Ox 98.5 F 97 18 142/78 93 08/25/18 07:17 08/25/18 07:17 08/25/18 07:17 08/25/18 07:17 08/25/18 07:17 Exam: Pt is AAO x 3, in NAD, morbid obesity HEENT: NC/AT, PERRL Neck: Supple, no JVD, no LAD Lungs: Breath sounds low on left side, no wheezes. Heart: S1S2, RRR Abd: Soft, mild tenderness in 4Q without rebound or guarding, BS present Ext: ROM wnl, no pedal edema Neuro: No focal deficit - Patient Status Disposition: Transfer Critical Access Hosp Condition: Fair Functional capacity at discharge: uses cane/walker Overall status at discharge: patient is not back to baseline - Discharge Instructions Follow Up With: Jane Daugherty JUDICIAL REPORTER [Primary Care Provider] - - Diet and Activity Activity: wear oxygen at all times Diet: diabetic diet
[2018-08-25 11:25] VITALS: BP 143/72
[2018-08-25 13:20] LABS: Adenovirus F 40/41 PCR Not detected (Not detect); Astrovirus PCR Not detected (Not detect); C.difficile Toxin A/B Gene PCR Not detected (Not detect); Campylobacter by PCR Not detected (Not detect); Cryptosporidium by PCR Not detected (Not detect); Cyclospora cayetanensis PCR Not detected (Not detect); E. coli O157 by PCR Not detected (Not detect); Entamoeba histolytica PCR Not detected (Not detect); Enteroaggregative E.coli(EAEC) Not detected (Not detect); Enteropathogenic E.coli(EPEC) Not detected (Not detect); Enterotoxigenic E.coli (ETEC) Not detected (Not detect); Giardia lamblia PCR Not detected (Not detect); Plesiomonas shigelloides PCR Not detected (Not detect); Rotavirus A PCR Not detected (Not detect); Salmonella PCR Not detected (Not detect); Sapovirus PCR Not detected (Not detect); Shig/EnteroinvasiveE coli EIEC Not detected (Not detect); Shigalike tox-prod E coli STEC Not detected (Not detect); Vibrio PCR Not detected (Not detect); Vibrio cholerae PCR Not detected (Not detect); Yersinia enterocolitica PCR Not detected (Not detect)
[2018-08-25 13:21] LABS: Norovirus GI/GII PCR DETECTED (Not detect)
== END 2018-08-25 12:56 | disposition critical access hospital (66) ==
LOC: 2ANU 13:41 → EMEROOARM 13:41 → SUATTDRO 18:19 → 2ANU 18:54
PROVIDERS: ADMIT Internal Medicine; ATTEND Internal Medicine

== ENCOUNTER 2021-12-23 05:11 | Observation (INO) ==
[2021-12-23] MEDS ORDERED: Naloxone 0.4 MG/ML INJ IVP PRN (08:15)
[2021-12-23 09:44] LABS: Basophils % 0.4 %; Eosinophils # 0.1 K/mcL (0.0-0.6); Eosinophils % 1.5 %; Hematocrit 31.2 % (35.3-44.9); Hemoglobin 10.2 g/dL (11.5-15.4); Immature Granulocytes % 0.6 % (0-4); Lymphocytes # 1.1 K/mcL (0.6-4.6); Lymphocytes % 20.9 %; Mean Corpuscular HGB Conc 32.7 g/dL (31.6-35.5); Mean Corpuscular Hemoglobin 28.8 pg (28.0-33.3); Mean Corpuscular Volume 88.1 fL (83.0-100.0); Mean Platelet Volume 10.8 fL (9.4-12.4); Monocytes # 0.3 K/mcL (0.0-1.3); Monocytes % 6.2 %; Neutrophils # 3.7 K/mcL (1.6-8.9); Red Blood Count 3.54 M/mcL (3.82-4.97); Red Cell Distribution Width 13.2 % (11.5-14.5); Segmented Neutrophils % 70.4 %; White Blood Count 5.3 K/mcL (4.3-11.1)
[2021-12-23 09:45] LABS: Platelet Count 65 K/mcL (140-400)
[2021-12-23 09:46] LABS: Immature Platelets 3.9 % (1.1-6.1)
[2021-12-23 09:56] LABS: Albumin 3.6 g/dL (3.5-5.7); Albumin/Globulin Ratio 1.2 (1.1-2.2); Calcium 9.2 mg/dL (8.6-10.3); Globulin 3.1 g/dL (2.4-3.5); Magnesium 1.7 mg/dL (1.6-2.6); Phosphorous 2.2 mg/dL (2.7-4.5); Potassium 4.6 mEq/L (3.5-5.1); Total Protein 6.7 g/dL (6.4-8.9)
[2021-12-23] MEDS ORDERED: *HR* Dextrose 50 % in Water (Syg) 50 ML SYRINGE IVP PRN (10:58)
[2021-12-23] MEDS ORDERED: Dextrose 4 GM Chewable Tablets PO PRN ×2 (10:58)
[2021-12-23] MEDS ORDERED: D5% in Water 1,000 ML IVC PRN (10:58)
[2021-12-23] MEDS ORDERED: Ipratropium/Albuterol Neb 3 ML IH PRN (10:58)
[2021-12-23] MEDS ORDERED: Lactulose 200 GM, Sodium Chloride IRRigation 700 ML RC ONE (11:15)
[2021-12-23] MEDS: Insulin LISPRO 300 UNITS/3 ML VIAL SUBQ SCH ×3 (12:46→17:06)
[2021-12-23] MEDS: Lactulose Oral Soln 20 GM/30 ML UDC PO SCH ×2 (12:46→21:03)
[2021-12-23] MEDS ORDERED: *HR* Heparin 5,000 UNIT/ML VIAL SQ SCH (18:00)
[2021-12-23] MEDS ORDERED: Ondansetron 4 MG/2 ML VIAL IVP ONE (20:18)
[2021-12-23] MEDS: Acetaminophen/Butalbital/CaffeineTABLET PO PRN (21:57)
[2021-12-24] MEDS: Insulin LISPRO 300 UNITS/3 ML VIAL SUBQ SCH ×5 (04:16→23:33)
[2021-12-24 05:15] LABS: Basophils % 0.4 %; Eosinophils % 1.1 %; Immature Granulocytes % 0.6 % (0-4)
[2021-12-24 05:17] LABS: Eosinophils # 0.1 K/mcL (0.0-0.6); Hematocrit 31.3 % (35.3-44.9); Hemoglobin 10.2 g/dL (11.5-15.4); Immature Platelets 3.6 % (1.1-6.1); Lymphocytes % 27.3 %; Mean Corpuscular HGB Conc 32.6 g/dL (31.6-35.5); Mean Corpuscular Hemoglobin 28.7 pg (28.0-33.3); Mean Corpuscular Volume 87.9 fL (83.0-100.0); Mean Platelet Volume 10.3 fL (9.4-12.4); Monocytes # 0.4 K/mcL (0.0-1.3); Monocytes % 6.6 %; Neutrophils # 3.4 K/mcL (1.6-8.9); Red Blood Count 3.56 M/mcL (3.82-4.97); Red Cell Distribution Width 13.1 % (11.5-14.5); White Blood Count 5.3 K/mcL (4.3-11.1)
[2021-12-24 05:19] LABS: Lymphocytes # 1.5 K/mcL (0.6-4.6); Platelet Count 67 K/mcL (140-400)
[2021-12-24 05:35] LABS: BUN/Creatinine Ratio 12 (6-26); Blood Urea Nitrogen 11 mg/dL (6-20); Calcium 9.3 mg/dL (8.6-10.3); Carbon Dioxide 28 mEq/L (23-29); Chloride 103 mEq/L (98-107); Glucose 179 mg/dL (70-105); Magnesium 1.5 mg/dL (1.6-2.6); Osmolality,Calculated 288 (280-300); Phosphorous 1.9 mg/dL (2.7-4.5); Potassium 4.4 mEq/L (3.5-5.1); Sodium 137 mEq/L (136-145); eGFR For African Americans > 60 (> 60); eGFR For Non-African Americans > 60 (> 60)
[2021-12-24] MEDS ORDERED: Mirtazapine 15 MG TABLET PO PRN (07:29)
[2021-12-24] MEDS: Gabapentin 300 MG CAPSULE PO SCH ×4 (08:35→19:40)
[2021-12-24] MEDS: Lactulose Oral Soln 20 GM/30 ML UDC PO SCH ×3 (08:35→19:40)
[2021-12-24] MEDS: Budesonide/Formoterol 160/4.5 1 PUFF INH IH SCH ×2 (08:51→22:04)
[2021-12-24] MEDS ORDERED: Cyanocobalamin (B-12) 1,000 MCG TABLET PO SCH (09:00)
[2021-12-24] MEDS ORDERED: lisinopriL 10 MG TABLET PO SCH (09:00)
[2021-12-24] MEDS ORDERED: Cholecalciferol (D-3) 1,000 UNIT (25MCG) TABLET PO SCH (09:00)
[2021-12-24] MEDS ORDERED: Spironolactone 25 MG TABLET PO SCH (09:00)
[2021-12-24] MEDS ORDERED: Bumetanide 1 MG TABLET PO SCH (09:00)
[2021-12-24] MEDS: Acetaminophen/Butalbital/CaffeineTABLET PO PRN (17:23)
[2021-12-25 05:19] LABS: Hematocrit 33.3 % (35.3-44.9); Red Cell Distribution Width 13.2 % (11.5-14.5); Segmented Neutrophils % 68.6 %
[2021-12-25 05:21] LABS: Basophils % 0.3 %; Eosinophils # 0.1 K/mcL (0.0-0.6); Eosinophils % 1.3 %; Hemoglobin 10.8 g/dL (11.5-15.4); Immature Granulocytes % 0.9 % (0-4); Immature Platelets 4.6 % (1.1-6.1); Lymphocytes # 1.5 K/mcL (0.6-4.6); Lymphocytes % 22.4 %; Mean Corpuscular HGB Conc 32.4 g/dL (31.6-35.5); Mean Corpuscular Hemoglobin 28.1 pg (28.0-33.3); Mean Corpuscular Volume 86.7 fL (83.0-100.0); Mean Platelet Volume 10.9 fL (9.4-12.4); Monocytes # 0.4 K/mcL (0.0-1.3); Monocytes % 6.5 %; Neutrophils # 4.6 K/mcL (1.6-8.9); Red Blood Count 3.84 M/mcL (3.82-4.97); White Blood Count 6.7 K/mcL (4.3-11.1)
[2021-12-25 05:22] LABS: Platelet Count 81 K/mcL (140-400)
[2021-12-25 05:52] LABS: Alanine Aminotransferase 14 Units/L (7-52); Albumin 3.5 g/dL (3.5-5.7); Albumin/Globulin Ratio 1.1 (1.1-2.2); Alkaline Phosphatase 107 Units/L (34-104); Aspartate Amino Transferase 22 Units/L (13-39); BUN/Creatinine Ratio 15 (6-26); Bilirubin,Direct 0.1 mg/dL (0.0-0.2); Bilirubin,Indirect 0.8 mg/dL (0.0-1.0); Bilirubin,Total 0.9 mg/dL (0.3-1.0); Blood Urea Nitrogen 15 mg/dL (6-20); Calcium 9.8 mg/dL (8.6-10.3); Carbon Dioxide 32 mEq/L (23-29); Chloride 98 mEq/L (98-107); Globulin 3.1 g/dL (2.4-3.5); Glucose 256 mg/dL (70-105); Magnesium 1.6 mg/dL (1.6-2.6); Osmolality,Calculated 290 (280-300); Potassium 4.5 mEq/L (3.5-5.1); Sodium 135 mEq/L (136-145); Total Protein 6.6 g/dL (6.4-8.9); eGFR For African Americans > 60 (> 60); eGFR For Non-African Americans 56 (> 60)
[2021-12-25] MEDS: Insulin LISPRO 300 UNITS/3 ML VIAL SUBQ SCH (06:07)
[2021-12-25 07:23] VITALS: BP 112/72; PULSE 72; TEMP 97.8
[2021-12-25] MEDS: Budesonide/Formoterol 160/4.5 1 PUFF INH IH SCH (07:40)
[2021-12-25 07:41] VITALS: O2SAT 92
== END 2021-12-25 11:37 | disposition home or self-care (01) ==
LOC: 3BNU → SUATTDRO 07:44
PROVIDERS: ADMIT Internal Medicine; ATTEND Family Medicine